=== PATIENT | female | born 1950 | race Caucasian/White ===

== ENCOUNTER 2016-12-16 14:58 | Emergency (ER) | payer MEDICARE, MEDICAID ==
[~2016-12-16] VITALS: Ht 149.9 cm; Wt 75.4 kg
[~2016-12-16 14:58] MED LIST: BUSP15 PO; DSS100 PO; OMEP20TA2 PO; PSYL368P4 PO; SERT50TA12 PO
[2016-12-16 16:58] VITALS: BP 118/82
== END 2016-12-16 17:13 | disposition home or self-care (01) ==
LOC: EMS 15:00
DX: S09.90XA Unspecified injury of head, initial encounter (principal); K21.9 Gastro-esophageal reflux disease without esophagitis; W01.0XXA Fall on same level from slipping, tripping and stumbling without subsequent striking against object, initial encounter; Y93.89 Activity, other specified; Y92.89 Other specified places as the place of occurrence of the external cause; Y99.8 Other external cause status
CPT/HCPCS: 70450; 99284